=== PATIENT | male | born 1935 | race Native Hawaiian/Other Pacific Islander ===

== ENCOUNTER 2016-10-19 07:41 | Outpatient (CLI) | payer OTHER ==
[~2016-10-19] VITALS: Ht 175.3 cm; Wt 89.4 kg
== END 2016-10-19 15:00 | disposition home or self-care (01) ==
LOC: NM 07:41
DX: I25.10 Atherosclerotic heart disease of native coronary artery without angina pectoris (principal)
CPT/HCPCS: A9500; J2785

== ENCOUNTER 2019-12-24 10:26 | Outpatient (CLI) | payer OTHER | END 2019-12-24 19:26 | disposition home or self-care (01) | LOC: US 10:26 | DX: I25.10 Atherosclerotic heart disease of native coronary artery without angina pectoris (principal) ==

== ENCOUNTER 2020-07-30 14:24 | Outpatient (CLI) | payer OTHER | END 2020-07-30 21:10 | disposition home or self-care (01) | LOC: RESP 14:24 | PROVIDERS: ATTEND Specialist | DX: I50.31 Acute diastolic (congestive) heart failure (principal); I25.10 Atherosclerotic heart disease of native coronary artery without angina pectoris; I25.5 Ischemic cardiomyopathy ==

== ENCOUNTER 2020-07-31 08:04 | Outpatient (CLI) | payer OTHER ==
[~2020-07-31] VITALS: Ht 175.3 cm; Wt 90.7 kg
== END 2020-07-31 20:02 | disposition home or self-care (01) ==
LOC: NM 08:04
PROVIDERS: ATTEND Specialist
DX: I50.31 Acute diastolic (congestive) heart failure (principal); I25.10 Atherosclerotic heart disease of native coronary artery without angina pectoris; I25.5 Ischemic cardiomyopathy
CPT/HCPCS: A9500; J2785